=== PATIENT | male | born 1980 | race Caucasian/White ===

== ENCOUNTER → 2016-04-25 | Outpatient (CLI) | payer BC | LOC: MW.CHRC 07:37 | PROVIDERS: ATTEND Family Medicine | DX: Z00.00 Encounter for general adult medical examination without abnormal findings (principal); R53.83 Other fatigue | CPT/HCPCS: 36415; 84402; 84403 ==

== ENCOUNTER → 2016-06-06 | Outpatient (CLI) | payer OTHER ==
--- NOTE | 2016-06-07 13:31 | CR ---
EXAM DATE: 06/06/16 PATIENT'S AGE: 36 Patient: CALIXTO MCACLLUM Facility: [place], [place] Site . Site : 1980 Study: XRay Extremity Right ankle [id number]/10/2017 10:24:11 AM Ordering Physician: Juan Marroquin Final Report: HISTORY: Ten days of pain. Findings: Three views of right ankle demonstrate a small traction spur at the plantar aspect of the calcaneus. No soft tissue swelling is seen. There is a well corticated ossific density seen along the inferior aspect of the medial malleolus. No acute fracture or dislocation is seen. Impression: 1. Small traction spur at the plantar aspect of the calcaneus. 2. No acute bony abnormality. Dictated by Daysi Henry MD @ Jun 06 2016 9:14PM (Electronic Signature) Report Signed by Proxy and Original Signed Document filed in the Medical Record. TEENA
== END ==
LOC: MW.CHFP 10:05
PROVIDERS: ATTEND Physician Assistant
DX: M25.471 Effusion, right ankle (principal); M25.571 Pain in right ankle and joints of right foot; M77.31 Calcaneal spur, right foot
CPT/HCPCS: 36415; 73610-26-RT; 73610-RT; 84550; 85652

== ENCOUNTER 2017-11-24 10:29 | Emergency (ER) | payer OTHER ==
[2017-11-24] MEDS ORDERED: Sodium Chloride 0.9% 1,000 ML IV ONE (10:45)
[2017-11-24] MEDS ORDERED: Ondansetron 4 MG/2 ML SDV IVPUSH ONE (10:45)
--- NOTE | 2017-11-24 10:51 | EDM.PDOC ---
<Bryce Hurtado - Last Filed: 11/24/17 14:35> ED HPI GENERAL MEDICAL PROBLEM - General Chief Complaint: Gastrointestinal Problem Stated Complaint: BLOODY STOOL/GASTROINTESTINAL ISSUES Time Seen by Provider: 11/24/17 10:39 - History of Present Illness INITIAL COMMENTS - FREE TEXT/NARRATIVE: I've seen and examined the patient and agree with the above above Following CT abdomen pelvis which was negative Therapeutics None Return if symptoms persist or worsen Follow-up with surgery Monday for consideration of colonoscopy and repeat hemoglobin Impression Right red blood per rectum Definitive disposition and diagnosis as appropriate pending reevaluation and review of above - Related Data Allergies Allergy/AdvReac Type Severity Reaction Status Date / Time bee venom protein (honey bee) Allergy Swelling Verified 11/24/17 10:46 Home Meds: Home Meds . [No Known Home Meds] 11/24/17 [History] ED ROS GENERAL - Review of Systems Review Of Systems: See Below ED EXAM, GI/ABD - Physical Exam Exam: See Below Course - Vital Signs Last Recorded V/S: Last Vital Signs Temp 97.6 F 11/24/17 10:41 Pulse 79 11/24/17 15:02 Resp 22 H 11/24/17 10:41 BP 155/94 H 11/24/17 15:02 Pulse Ox 96 11/24/17 15:02 - Orders/Labs/Meds Orders: Active Orders 24 hr Category Date Time Status Abdomen Pelvis w Cont [CT] Stat Exams 11/24/17 11:40 Taken CULTURE STOOL + CAMPY+SHIGATOX [RM] Stat Lab 11/24/17 11:00 Results Guaiac [OCCULT BLOOD DIAGNOSTIC] [OP] Stat Lab 11/24/17 13:34 Ordered Labs: Laboratory Tests 11/24/17 11/24/17 Range/Units 11:08 11:08 WBC 8.65 (4.0-11.0) K/uL RBC 4.90 (4.50-5.90) M/uL Hgb 16.7 (13.0-17.0) g/dL Hct 47.7 (38.0-50.0) % MCV 97.3 (80.0-98.0) fL MCH 34.1 H (27.0-32.0) pg MCHC 35.0 (31.0-37.0) g/dL RDW Std Deviation 45.9 (28.0-62.0) fl RDW Coeff of Paul 13 (11.0-15.0) % Plt Count 209 (150-400) K/uL MPV 11.40 (7.40-12.00) fL Neut % (Auto) 49.6 (48.0-80.0) % Lymph % (Auto) 38.4 (16.0-40.0) % Winston % (Auto) 7.2 (0.0-15.0) % Eos % (Auto) 4.3 (0.0-7.0) % Baso % (Auto) 0.5 (0.0-1.5) % Neut # (Auto) 4.3 (1.4-5.7) K/uL Lymph # (Auto) 3.3 H (0.6-2.4) K/uL Winston # (Auto) 0.6 (0.0-0.8) K/uL Eos # (Auto) 0.4 (0.0-0.7) K/uL Baso # (Auto) 0.0 (0.0-0.1) K/uL Nucleated RBC % 0.0 /100WBC Nucleated RBCs # 0 K/uL Sodium 139 (136-148) mmol/L Potassium 4.3 (3.5-5.1) mmol/L Chloride 105 (98-107) mmol/L Carbon Dioxide 25.0 (21.0-32.0) mmol/L BUN 10 (7.0-18.0) mg/dL Creatinine 0.9 (0.8-1.3) mg/dL Est Cr Clr Drug Dosing 110.20 mL/min Estimated GFR (MDRD) > 60.0 ml/min Glucose 123 H (74-106) mg/dL Calcium 9.0 (8.5-10.1) mg/dL Total Bilirubin 0.6 (0.2-1.0) mg/dL AST 51 H (15-37) IU/L ALT 112 H (14-63) IU/L Alkaline Phosphatase 51 (46-116) U/L Total Protein 7.8 (6.4-8.2) g/dL Albumin 3.9 (3.4-5.0) g/dL Globulin 3.9 H (2.0-3.5) g/dL Albumin/Globulin Ratio 1.0 L (1.3-2.8) Meds: Medications Discontinued Medications Generic Name Dose Route Start Last Admin Trade Name Arias PRN Reason Stop Dose Admin Sodium Chloride 1,000 mls @ 999 mls/hr 11/24/17 10:45 11/24/17 11:09 Normal Saline IV 11/24/17 11:45 999 mls/hr STAT ONE Administration Iopamidol 100 ml 11/24/17 12:58 11/24/17 12:58 Isovue Multipack-370 (76%) IVPUSH 11/24/17 12:59 100 ml ONETIME STA Administration Ondansetron HCl 4 mg 11/24/17 10:45 11/24/17 11:09 Zofran IVPUSH 11/24/17 10:46 4 mg ONETIME ONE Administration Departure - Departure Time of Disposition: 14:36 Disposition: Home, Self-Care 01 Condition: Good Clinical Impression: BRBPR (bright red blood per rectum) - Discharge Information Instructions: Rectal Bleeding, [id number] Referrals: PCP,None [Primary Care Provider] - Forms: ED Department Discharge Additional Instructions: Return if symptoms persist or worsen or if new concerning symptoms develop Follow-up with surgery, ER referral provided for Monday for repeat lab a consideration of colonoscopy [facility] - General Surgery [address], [address] [place] [address] The following information is given to patients seen in the emergency department who are being discharged to home. This information is to outline your options for follow-up care. We provide all patients seen in our emergency department with a follow-up referral. The need for follow-up, as well as the timing and circumstances, are variable depending upon the specifics of your emergency department visit. If you don't have a primary care physician on staff, we will provide you with a referral. We always advise you to contact your personal physician following an emergency department visit to inform them of the circumstance of the visit and for follow-up with them and/or the need for any referrals to a consulting specialist. The emergency department will also refer you to a specialist when appropriate. This referral assures that you have the opportunity for follow-up care with a specialist. All of these measure are taken in an effort to provide you with optimal care, which includes your follow-up. Under all circumstances we always encourage you to contact your private physician who remains a resource for coordinating your care. When calling for follow-up care, please make the office aware that this follow-up is from your recent emergency room visit. If for any reason you are refused follow-up, please contact the [facility] emergency department at and asked to speak to the emergency department charge nurse. - My Orders Last 24 Hours: My Active Orders 11/24/17 11:00 CULTURE STOOL + CAMPY+SHIGATOX [RM] Stat 11/24/17 11:40 Abdomen Pelvis w Cont [CT] Stat - Assessment/Plan Last 24 Hours: My Active Orders 11/24/17 11:00 CULTURE STOOL + CAMPY+SHIGATOX [RM] Stat 11/24/17 11:40 Abdomen Pelvis w Cont [CT] Stat <Kate Martinez - Last Filed: 11/24/17 16:09> ED HPI GENERAL MEDICAL PROBLEM - History of Present Illness INITIAL COMMENTS - FREE TEXT/NARRATIVE: HISTORY AND PHYSICAL: History of present illness: The patient is a 37-year-old male who presents to the ER with 3 day history of abdominal pain, diarrhea, and bloody stools. The patient reports having 4-5 loose stools a day with bright red blood seen in the toilet. He denies any history of GI bleed but does endorse history of hemorrhoids. His abdominal pain is sharp and cramping in the lower abdomen. He denies fever, chills. He denies sick contacts. He denies any significant past medical history. [] Review of systems: As per history of present illness and below otherwise all systems reviewed and negative. Past medical history: As per history of present illness and as reviewed below otherwise noncontributory. Surgical history: As per history of present illness and as reviewed below otherwise noncontributory. Social history: No reported history of drug or alcohol abuse. Family history: As per history of present illness and as reviewed below otherwise noncontributory. Physical exam: HEENT: Atraumatic, normocephalic, pupils reactive, negative for conjunctival pallor or scleral icterus, mucous membranes moist, throat clear, neck supple, nontender, trachea midline. Lungs: Clear to auscultation, breath sounds equal bilaterally, chest nontender. Heart: S1S2, regular, negative for clicks, rubs, or JVD. Abdomen: Soft, nondistended, tender LLQ, RLQ, no guarding or rebound. Negative for masses or hepatosplenomegaly. Negative for costovertebral tenderness. Pelvis: Stable nontender. Genitourinary: Deferred. Rectal: normal tone, external hemorrhoid, no bright red blood per rectum, brown stool, hemoccult positive. Extremities: Atraumatic, negative for cords or calf pain. Neurovascular unremarkable. Neuro: Awake, alert, oriented. Cranial nerves II through XII unremarkable. Cerebellum unremarkable. Motor and sensory unremarkable throughout. Exam nonfocal. Diagnostics: [CBC, CMP, C. difficile, stool studies, CT abdomen/pelvis, hemoccult] Therapeutics: [IV fluids, zofran] Impression: [gastroenteritis vs diverticulosis vs diverticulitis] Plan: [] Definitive disposition and diagnosis as appropriate pending reevaluation and review of above. Abdomen Pain Score (Numeric/FACES): 7 Course - Orders/Labs/Meds Labs: Laboratory Tests 11/24/17 11/24/17 Range/Units 11:08 11:08 WBC 8.65 (4.0-11.0) K/uL RBC 4.90 (4.50-5.90) M/uL Hgb 16.7 (13.0-17.0) g/dL Hct 47.7 (38.0-50.0) % MCV 97.3 (80.0-98.0) fL MCH 34.1 H (27.0-32.0) pg MCHC 35.0 (31.0-37.0) g/dL RDW Std Deviation 45.9 (28.0-62.0) fl RDW Coeff of Paul 13 (11.0-15.0) % Plt Count 209 (150-400) K/uL MPV 11.40 (7.40-12.00) fL Neut % (Auto) 49.6 (48.0-80.0) % Lymph % (Auto) 38.4 (16.0-40.0) % Winston % (Auto) 7.2 (0.0-15.0) % Eos % (Auto) 4.3 (0.0-7.0) % Baso % (Auto) 0.5 (0.0-1.5) % Neut # (Auto) 4.3 (1.4-5.7) K/uL Lymph # (Auto) 3.3 H (0.6-2.4) K/uL Winston # (Auto) 0.6 (0.0-0.8) K/uL Eos # (Auto) 0.4 (0.0-0.7) K/uL Baso # (Auto) 0.0 (0.0-0.1) K/uL Nucleated RBC % 0.0 /100WBC Nucleated RBCs # 0 K/uL Sodium 139 (136-148) mmol/L Potassium 4.3 (3.5-5.1) mmol/L Chloride 105 (98-107) mmol/L Carbon Dioxide 25.0 (21.0-32.0) mmol/L BUN 10 (7.0-18.0) mg/dL Creatinine 0.9 (0.8-1.3) mg/dL Est Cr Clr Drug Dosing 110.20 mL/min Estimated GFR (MDRD) > 60.0 ml/min Glucose 123 H (74-106) mg/dL Calcium 9.0 (8.5-10.1) mg/dL Total Bilirubin 0.6 (0.2-1.0) mg/dL AST 51 H (15-37) IU/L ALT 112 H (14-63) IU/L Alkaline Phosphatase 51 (46-116) U/L Total Protein 7.8 (6.4-8.2) g/dL Albumin 3.9 (3.4-5.0) g/dL Globulin 3.9 H (2.0-3.5) g/dL Albumin/Globulin Ratio 1.0 L (1.3-2.8) Meds: Medications Discontinued Medications Generic Name Dose Route Start Last Admin Trade Name Freq PRN Reason Stop Dose Admin Sodium Chloride 1,000 mls @ 999 mls/hr 11/24/17 10:45 11/24/17 11:09 Normal Saline IV 11/24/17 11:45 999 mls/hr STAT ONE Administration Iopamidol 100 ml 11/24/17 12:58 11/24/17 12:58 Isovue Multipack-370 (76%) IVPUSH 11/24/17 12:59 100 ml ONETIME STA Administration Ondansetron HCl 4 mg 11/24/17 10:45 11/24/17 11:09 Zofran IVPUSH 11/24/17 10:46 4 mg ONETIME ONE Administration
[2017-11-24 11:36] LABS: CHLORIDE,CL 105 mmol/L (98-107); SODIUM,NA 139 mmol/L (136-148)
[2017-11-24] MEDS ORDERED: Iopamidol 755 MG/ML 500 ML Multipack Bottle IVPUSH STA (12:58)
--- NOTE | 2017-11-27 10:02 | CT ---
EXAM DATE: 11/24/17 PATIENT'S AGE: 37 Patient: CALIXTO MCCALLUM Facility: [place], [place] Site . Site : 1980 Study: CT Abdomen/Pelvis [id number]/28/2018 12:15:51 PM Ordering Physician: Michelle Love Final Report: INDICATION: Pain. Bloody stools. Lower abdominal pain for 3 days. Decreased appetite. TECHNIQUE: The abdomen and pelvis were scanned from lung bases through the symphysis pubis with IV contrast. Sagittal and coronal reformatted images were generated. FINDINGS: The lung bases are clear. No consolidations or pleural effusions. There is decreased attenuation liver consistent diffuse fatty infiltration. Spleen is homogeneous. Stomach is unremarkable. Gallbladder is not well distended. No calcified gallstones. No masses in the pancreas. Adrenal glands are unremarkable. Kidneys are normal in size and position. No obstruction or hydronephrosis. No perinephric fluid collections. There is no evidence of bowel obstruction, free air or free fluid. The appendix is normal without evidence of appendicitis. No pericolonic stranding or fluid collections are identified. Prostate and seminal vesicles are normal. No pelvic lymphadenopathy. Aorta is normal in caliber. Retro aortic left renal vein. Impression: 1. No acute process in the abdomen or pelvis. 2. Decreased attenuation liver consistent with diffuse fatty infiltration. 3. Appendix is normal. 4. No bowel obstruction, free air or free fluid. Please note that all CT scans at this facility use dose modulation, iterative reconstruction, and/or weight-based dosing when appropriate to reduce radiation dose to as low as reasonably achievable. Dictated by Edson Malik MD @ Nov 24 2017 12:37PM (Electronic Signature) Report Signed by Proxy. [facility]
== END 2017-11-24 15:02 | disposition home or self-care (01) ==
LOC: MW.ED 10:29
DX: K62.5 Hemorrhage of anus and rectum (principal); Z91.030 Bee allergy status
CPT/HCPCS: 36415; 74177; 80053; 82272; 83630; 85025; 87046; 87324; 87899; 96361; 96374; 99285; J2405; J7040; Q9967; 99282

== ENCOUNTER 2021-07-28 11:33 | Emergency (ER) | payer OTHER ==
[2021-07-28] MEDS: Aspirin 81 MG Tab.Chew PO ONE (12:12)
[2021-07-28 12:18] LABS: BLOOD UREA NITROGEN,BUN 11 mg/dL (7.0-18.0); CHLORIDE,CL 100 mmol/L (98-107); GLUCOSE RANDOM 100 mg/dL (74-106); LIPASE 65 U/L (73-393); SODIUM,NA 136 mmol/L (136-148)
== END 2021-07-28 14:46 | disposition home or self-care (01) ==
LOC: MW.ED 11:33
DX: R07.89 Other chest pain (principal); R07.81 Pleurodynia; I10 Essential (primary) hypertension; E66.9 Obesity, unspecified; Z68.43 Body mass index [BMI] 50.0-59.9, adult; Z91.030 Bee allergy status; Z20.822 Contact with and (suspected) exposure to COVID-19; Z87.891 Personal history of nicotine dependence
CPT/HCPCS: 36415; 71045; 80053; 83690; 84484; 85025; 85379; 87635; 93005; 99285; A9270; U0002